=== PATIENT | male | born 1965 | race Caucasian/White ===

== ENCOUNTER 2018-01-31 08:03 | Day surgery (SDC) | payer OTHER ==
[2018-01-31] MEDS ORDERED: LIDOCAINE 100 MG SYRINGE (09:52)
[2018-01-31] MEDS ORDERED: FENTAnyl 50 MCG/ML VIAL (09:52)
[2018-01-31] MEDS ORDERED: PROPOFOL 60 ML (09:52)
== END 2018-01-31 17:34 | disposition home or self-care (01) ==
LOC: GIL 08:03
DX: Z12.11 Encounter for screening for malignant neoplasm of colon (principal); K21.0 Gastro-esophageal reflux disease with esophagitis; K29.60 Other gastritis without bleeding; K44.9 Diaphragmatic hernia without obstruction or gangrene; K22.10 Ulcer of esophagus without bleeding; K57.90 Diverticulosis of intestine, part unspecified, without perforation or abscess without bleeding; K64.8 Other hemorrhoids; E66.9 Obesity, unspecified; Z68.30 Body mass index [BMI] 30.0-30.9, adult
CPT/HCPCS: 43239